=== PATIENT | female | born 1980 | race Caucasian/White ===

== ENCOUNTER 2019-02-18 03:40 | Emergency (ER) | payer SELFPAY ==
[~2019-02-18] VITALS: Ht 167.6 cm; Wt 93.0 kg
[2019-02-18 03:48] VITALS: Ht 167.6 cm; Wt 93.0 kg
[2019-02-18 04:28] VITALS: BP 125/100
== END 2019-02-18 04:28 | disposition left against medical advice (07) ==
LOC: ED 03:40
DX: Z53.21 Procedure and treatment not carried out due to patient leaving prior to being seen by health care provider (principal)